=== PATIENT | female | born 1995 | race Caucasian/White ===

== ENCOUNTER 2017-06-14 16:05 | Emergency (ER) | payer MEDICAID, OTHER ==
--- NOTE | 2017-06-14 16:23 | PD ---
HPI Chief Complaint Contractions Date Seen: Jun 14, 2017 Travel History International Travel<30 Days: No Contact w/Intl Traveler<30Days: No History of Present Illness HPI Ms. Cunningham is a 22-year-old presenting at 40/1 weeks gestation with dysuria, contractions, and vaginal swelling. Patient states that over the last 24 hours she has noticed mild pain when she urinates. This morning when she uses the restroom after awakening, she "felt like she had to go very bad" with ABD pain. During urination she felt like there was some pain, but didn't see any blood. She also has noticed that her vulvar area has become swollen and pruritic. She states that the intensity was increased this morning, however has decreased since she took a nap this afternoon. She also endorses having contractions approximately every 10-15 minutes with pelvic pressure. Patient states that she is afraid to have a bowel movement as that she might pass the baby. She states that her otherwise has been uncomplicated and has no other current complaints. She denies any fevers, chills, shortness breath, chest pain, NVD, or calf tenderness. Weeks Gestation: 40 Para: 1 : 2 History Past Medical History Narrative Medical Patient reports no past medical history Obstetric History Obstetric History - at full-term, uncomplicated Past Surgical History Narrative Surgical No previous surgical history reported Family History Narrative Family History No family medical history reported Social History Narrative Social History Patient denies any tobacco, alcohol, or illicit drug use during . Allergies-Medications (Allergen,Severity, Reaction): Coded Allergies: No Known Allergies (Verified , 03/17/15) Home Meds No Active Prescriptions or Reported Meds Review of Systems Except as stated in HPI: all other systems reviewed are Neg (per history of present illness) Physical Exam Narrative GENERAL: Well-nourished, well-developed patient. SKIN: Warm and dry. HEAD: Normocephalic and atraumatic. EYES: No scleral icterus. No injection or drainage. ENT: No nasal drainage noted. Mucous membranes pink. Airway patent. NECK: Supple, trachea midline. No JVD. CARDIOVASCULAR: Regular rate and rhythm without murmurs, gallops, or rubs. RESPIRATORY: Breath sounds equal bilaterally. No accessory muscle use. ABDOMEN/GI: Abdomen soft, non-tender, bowel sounds present, no rebound, no guarding Gravid to 40 weeks size GENITOURINARY: Per nursing exam External Genitalia: intact and normal in appearance Cervix: Anterior Dilatation: 1cm Effacement: Long, thick Station: -3 Presentation: Membranes: Intact Uterine Contractions: 10-15min per patient FHT's: Category: 1 Baseline: 130s Reactive: Positive Variability: Moderate Decels: None EXTREMITIES: No cyanosis or edema. BACK: Nontender without obvious deformity. No CVA tenderness. NEUROLOGICAL: Awake and alert. Motor and sensory grossly within normal limits. Five out of 5 muscle strength in all muscle groups. Normal speech. Data Data Vital Signs Reviewed: Yes Group B Strep: Negative MDM Medical Record Reviewed: Yes Plan Ms. Cunningham is a 23-year-old presenting at 40/1 weeks gestation with dysuria, lower ABD pain, and contractions. 1. IUP at 40 weeks gestation -Continue routine antepartum care -Encourage oral hydration, vitamin -[facility] category 1, reassuring 2. Contractions -Patient without contractions on monitor -Cervical exam with anterior, closed, and thick cervix per staff 3. Dysuria -UA dipstick: Small leukocyte esterase, otherwise negative -UA with culture if indicated sent; plan to follow up cultures and treat as needed 4. Vulvar pain -Vulva on exam does not appear inflamed or edematous per staff -No signs of infection -Encouraged Benadryl for itching 5. Post-Dates Gestation -Patient scheduled for induction at 41 weeks -Scheduled for Monday, at 6 PM, patient aware and voiced understanding Patient to be discharged home as she is not in active labor and without acute infection. OB team to follow urine culture and treat if indicated ([phone]) . Patient given labor instructions and when to return to ED. Patient encouraged to follow up with OBGYN. SDW: Dr. Quesada Diagnosis Diagnosis: Primary Impression: 40 weeks gestation of Additional Impression: Pelvic pressure in Disposition: DISCHARGE HOME Condition: Stable Scripts No Active Prescriptions or Reported Meds Patient Instructions: General Instructions, Abdominal Pain in (ED), Early Labor Signs (ED), Having Your Baby: The Labor Process (GEN) Eben Camilo MD R2 Jun 14, 2017 16:22
[2017-06-14 16:54] VITALS: BP 91/69; PULSE 72
[2017-06-14 17:00] VITALS: RESP 17
[2017-06-14 17:49] LABS: AMORPHOUS SEDIMENT, URINE OCC; BACTERIA, URINE RARE /hpf; BILIRUBIN, URINE NEG (NEG); BLOOD, URINE NEG (NEG); GLUCOSE,URINE NEG (NEG); KETONE, URINE NEG (NEG); MUCUS URINE FEW /lpf (OCC); NITRITE,URINE NEG (NEG); PH, URINE 6.5 (5.0-8.5); SQUAMOUS EPITHELIAL CELL URINE 2 /hpf (0-5); URINE COLOR YELLOW (YELLW/STRAW); URINE LEUKOCYTE ESTERASE SMALL (NEG)
== END 2017-06-14 19:09 | disposition home or self-care (01) ==
LOC: HOBED 16:05
DX: R30.0 Dysuria (principal); Z3A.40 40 weeks gestation of pregnancy
CPT/HCPCS: 59025; 81001

== ENCOUNTER 2017-06-18 10:58 | Inpatient (IN) | payer MEDICAID, OTHER ==
[~2017-06-18] VITALS: Ht 149.9 cm; Wt 58.0 kg
[2017-06-18] MEDS ORDERED: LACTATED RINGER'S 1000 ML INJ 1,000 ML IV PRN (11:26)
[2017-06-18] MEDS: LACTATED RINGER'S 1000 ML INJ 1,000 ML IV SCH ×2 (11:26→20:14)
[2017-06-18] MEDS ORDERED: MINERAL OIL 10 ML VIAL TOPICAL PRN (11:30)
[2017-06-18] MEDS ORDERED: SODIUM CHLORID 0.9% 500 ML INJ 500 ML OTHER PRN (11:30)
[2017-06-18] MEDS ORDERED: CITRIC ACID-SODIUM CITRATE LIQ 30 ML UDC PO SCH (11:30)
[2017-06-18] MEDS ORDERED: LIDOCAINE HCL 1% 50 ML VIAL INFIL PRN (11:30)
[2017-06-18] MEDS ORDERED: LIDOCAINE HCL 1% 50 ML VIAL I-DERMAL PRN (11:30)
[2017-06-18] MEDS ORDERED: OXYTOCIN 30 UNITS-500ML PREMIX 500 ML IV ONE (11:30)
[2017-06-18] MEDS ORDERED: ONDANSETRON HCL 4 MG/2 ML VIAL IV PUSH PRN (11:30)
--- NOTE | 2017-06-18 11:35 | HHI.PR ---
ADULT PSYCHIATRIST Note Note ADMISSION H&P HPI HPI Chief Complaint ctx and ?LOF Date Seen: Jun 18, 2017 Time Seen: 11:27 Travel History International Travel<30 Days: No Contact w/Intl Traveler<30Days: No Known Affected Area: No History of Present Illness HPI 22y/o @ 40.5wks. She has PNC with [facility]. She presents today with c/o painful ctx since yesterday. She also woke up this morning wet and feels like her water may have broken. No VB. +FM. Weeks Gestation: 40 Para: 1 : 2 History (Limited) History Past Medical History Medical History: Denies Significant Hx Obstetric History Obstetric History 1. 2. current Past Surgical History Surgical History: No Previous Surgery Family History Family History: Negative Social History Alcohol Use: No Tobacco Use: No Substance Abuse: No Allergies-Medications Allergies-Medications (Allergen,Severity, Reaction): Coded Allergies: No Known Allergies (Verified , 03/17/15) Home Meds No Active Prescriptions or Reported Meds ROS Review of Systems Except as stated in HPI: all other systems reviewed are Neg Physical Exam Physical Exam Narrative General: well developed, well nourished, no acute distress HEENT: normocephalic atraumatic, extraocular movements intact, neck supple Abdomen: soft, gravid, nontender, nondistended Uterus: fundus term Extremities: full range of motion Skin: normal coloration, no rashes, no suspicious skin lesions noted Neurologic: cranial nerves 2-12 grossly intact, normal muscle tone, normal gait Psychiatric: normal mood and affect, appropriate FHTs: 120s, +accels, no decels, moderate variability, reactive [place]: ctx q1m Cvx: 3/90/-3 with forebag (amnisure+) Data Data Data Vital Signs Reviewed: Yes Orders Orders Vital Signs (Adult) .ON ADMISSION (06/18/17 11:26) ^ Labor Status (06/18/17 11:26) ^ Non Stress Test (06/18/17 11:26) Pamg-1 Test .ONCE (06/18/17 11:26) Admit To Inpatient (06/18/17 ) Vital Signs (Adult) .Per protocol (06/18/17 11:26) Heart (06/18/17 11:26) Amnioinfusion (06/18/17 11:26) Urinary Catheter Management .ONCE (06/18/17 11:26) Diet Liquid (06/18/17 Lunch) Lactated Ringer's 1000 Ml Inj (Lr 1000 M (06/18/17 11:26) Lactated Ringer's 1000 Ml Inj (Lr 1000 M (06/18/17 11:26) Sodium Chlorid 0.9% 500 Ml Inj (Ns 500 M (06/18/17 11:30) Sodium Chlor 0.9% 1000 Ml Inj (Ns 1000 M (06/18/17 11:46) Lidocaine 1% Inj (50 Ml) (Xylocaine 1% I (06/18/17 11:30) Citric Acid-Sodium Citrate Liq (Bicitra (06/18/17 11:30) Ondansetron Inj (Zofran Inj) (06/18/17 11:30) Fentanyl Inj (Fentanyl Inj) (06/18/17 11:30) Fentanyl Inj (Fentanyl Inj) (06/18/17 11:30) Complete Blood Count With Diff (06/18/17 11:26) Hold Clot (06/18/17 11:26) Abo/Rh Blood Type (06/18/17 11:26) Urinalysis - C+S If Indicated (06/18/17 11:26) Drug Screen, Random Urine (06/18/17 11:26) Resp Oxygen Non Rebreathe Mask (06/18/17 ) ^ Epidural / Intrathecal Infus (06/18/17 11:26) Oxytocin 30 Units-500ml Premix (Pitocin (06/18/17 11:30) Lidocaine 1% Inj (50 Ml) (Xylocaine 1% I (06/18/17 11:30) Light Mineral Oil (Muri-Lube Oil) (06/18/17 11:30) Inpatient Certification (06/18/17 ) Group B Strep: Negative MDM MDM Plan 22y/o @ 40.5wks with labor and ROM. -- admit to L&D -- CLD, epidural/anaya PRN -- FHTs cat 1 -- cvx /-3 with forebag -- GBS neg -- anticipate Diagnosis Diagnosis: Primary Impression: 40 weeks gestation of Additional Impressions: Postmaturity , 40-42 weeks gestation Uterine contractions during Rupture of membranes with clear amniotic fluid Scripts No Active Prescriptions or Reported Meds Lance Hernández MD Jun 18, 2017 11:35 Lance Hernández MD Jun 18, 2017 11:35
[2017-06-18] MEDS ORDERED: SODIUM CHLOR 0.9% 1000 ML INJ 1,000 ML OTHER PRN (11:46)
[2017-06-18] MEDS ORDERED: ePHEDrine/NS 25 MG/5 ML SYRINGE ONE (11:51)
[2017-06-18] MEDS ORDERED: fentaNYL 2MCG-BUPIV 0.125% INJ 100 ML ONE (11:51)
[2017-06-18 12:01] LABS: HEMATOCRIT 33.3 % (35.0-46.0); HEMOGLOBIN 10.9 GM/DL (11.6-15.3); MEAN CELL VOLUME 80.7 FL (80.0-100.0); MEAN CORPUSCULAR HEMOGLOBIN 26.4 PG (27.0-34.0); MEAN CORPUSCULAR HGB CONC 32.7 % (32.0-36.0); MEAN PLATELET VOLUME 8.9 FL (7.0-11.0); PLATELET COUNT 241 TH/MM3 (150-450); RED BLOOD COUNT 4.13 MIL/MM3 (4.00-5.30); RED CELL DISTRIBUTION WIDTH 15.9 % (11.6-17.2)
[2017-06-18] MEDS ORDERED: DO NOT ADMINISTER ANTICOAGULANTS PRN (13:00)
[2017-06-18] MEDS ORDERED: fentaNYL 2MCG-BUPIV 0.125% 100 ML EPIDURAL SCH (13:00)
[2017-06-18] MEDS ORDERED: ePHEDrine/NS 25 MG/5 ML SYRINGE IV PUSH PRN (13:00)
[2017-06-18] MEDS ORDERED: NO SYSTEM NARCOTICS PRN (13:00)
[2017-06-18 13:08] LABS: BANDS 1 % (0-6); LYMPHOCYTES 23 % (9-44); MONOCYTES 8 % (0-8); NEUTROPHIL # MANUAL DIFF 7.6 TH/MM3 (1.8-7.7); POLYS (SEG NEUTROPHILS) 68 % (16-70)
[2017-06-18 13:21] LABS: BACTERIA, URINE RARE /hpf; BILIRUBIN, URINE NEG (NEG); BLOOD, URINE NEG (NEG); GLUCOSE,URINE NEG (NEG); KETONE, URINE NEG (NEG); MUCUS URINE FEW /lpf (OCC); NITRITE,URINE NEG (NEG); SQUAMOUS EPITHELIAL CELL URINE <1 /hpf (0-5); URINE COLOR LIGHT-YELLOW (YELLW/STRAW); URINE LEUKOCYTE ESTERASE NEG (NEG)
[2017-06-18] MEDS ORDERED: OXYTOCIN 30 UNITS-500ML PREMIX 500 ML IV PRN (15:45)
--- NOTE | 2017-06-18 19:01 | PD.LABORPN ---
Subjective Subjective Pt comfortable with epidural in place. Objective Objective 5/100/ballottable with forebag (ruptured with amnihook and copious fluid returned) FHTs with moderate variability and occasional deep variables; no cord palpable and improved with repositioning Weeks Gestation: 40 Assessment/Plan Assessment and Plan 22y/o @ 40.5wks in labor. -- s/p epidural -- s/p ruptured of forebag -- continue pitocin augmentation -- anticipate Lance Hernández MD Jun 18, 2017 19:01
--- NOTE | 2017-06-19 00:14 | PD.LABORPN ---
Subjective Subjective CTSP by RN 2' to FHTs. O2 in place. Objective Objective Pt has had a decrease in baseline to 115s. Recurrent variables (mild). Cvx checked and /+1. IUPC placed and amnioinfusion initiated and variable decels improved. scalp stim --> FHTs up to 130s/140s. Moderate to marked variability present. Weeks Gestation: 40 Assessment/Plan Assessment and Plan Continue to monitor closely. Anticipate . Lance Hernández MD Jun 19, 2017 00:14
--- NOTE | 2017-06-19 02:25 | PD.OB.DELI ---
Weeks gestation: 40 Pt started active labor?: Yes Medical induction of labor?: No Artificial rupture of membrane: No Anesthesia: Epidural Episiotomy: None Vaginal Delivery: Normal, Spontaneous Presentation: Occiput anterior Nuchal Cord: None Delayed cord clamping (45 sec): Yes Infant: Male Delivery date: Jun 19, 2017 Delivery time: 02:17 One Minute : 8 Five Minute : 9 Placenta: Spontaneous delivery, Intact, 3 vessel cord Laceration: No lacerations Estimated blood loss: 200cc Lance Hernández MD Jun 19, 2017 02:25
[2017-06-19] MEDS ORDERED: ACETAMINOPHEN 325 MG TAB PO PRN (02:30)
[2017-06-19] MEDS ORDERED: ZOLPIDEM TARTRATE 5 MG TAB PO PRN (02:30)
[2017-06-19] MEDS ORDERED: SODIUM CHLORIDE 0.9% FLUSH 10 ML FLUSH IV FLUSH PRN (02:30)
[2017-06-19] MEDS ORDERED: WITCH HAZEL 50%/GLYCERIN 12.5% 40 PAD JAR TOPICAL PRN (02:30)
[2017-06-19] MEDS ORDERED: ONDANSETRON ODT 4 MG TAB PO PRN (02:30)
[2017-06-19] MEDS ORDERED: DOCUSATE SODIUM 50 MG/SENNA 8.6 MG TAB PO PRN (02:30)
[2017-06-19] MEDS ORDERED: ALUMINUM/MAGNESIUM/SIMETH 30 ML CUP PO PRN (02:30)
[2017-06-19] MEDS ORDERED: BENZOCAINE 20% TOPICAL SPRAY 60 ML CAN TOPICAL PRN (02:30)
[2017-06-19] MEDS ORDERED: OXYTOCIN 30 UNITS-500ML PREMIX 500 ML IV SCH (02:30)
[2017-06-19] MEDS ORDERED: SODIUM CHLORIDE 0.9% FLUSH 10 ML FLUSH IV FLUSH SCH (09:00)
[2017-06-19] MEDS: IBUPROFEN 800 MG TAB PO PRN ×2 (10:33→22:10)
[2017-06-19] MEDS ORDERED: MEASLES, MUMPS, RUBELLA VACCINE 0.5 ML VIAL SQ ONE (16:00)
[2017-06-19] MEDS ORDERED: DIPHTH/TETANUS/ACEL PERTUSSIS (BOOSTER) 0.5 ML VIAL/PFS IM ONE (16:00)
[2017-06-20 08:00] VITALS: BP 90/60; PULSE 50; RESP 18; TEMP 98.2
--- NOTE | 2017-06-20 08:11 | HHI.OB ---
Subjective Post Day: 1 Remarks day #1 AFVSS overnight. Decreased lochia. Denies dysuria. No breast tenderness. Appetite good. No nausea or vomiting. Positive flatus. Ambulating well. Denies calf pain or shortness of breath. Otherwise, she is doing well this morning and has no other complaints. Objective Objective Remarks GENERAL: Well-nourished, well-developed patient. CARDIOVASCULAR: Regular rate and rhythm without murmurs, gallops, or rubs. RESPIRATORY: Breath sounds equal bilaterally. No accessory muscle use. ABDOMEN/GI: Abdomen soft, non-tender. Fundus: Firm, non-tender at umbilicus. GENITOURINARY: Light to moderate bleeding. EXTREMITIES: No cyanosis or edema, non-tender, without signs of DVT. Medications and IVs Current Medications Medications (Trade) Dose Ordered Sig/Diana Route Start Time Stop Time Status Last Admin (NS Flush) 2 ml BID IV FLUSH 06/19/17 09:00 (NS Flush) 2 ml UNSCH PRN IV FLUSH 06/19/17 02:30 (Tylenol) 650 mg Q4H PRN PO 06/19/17 02:30 (Motrin) 800 mg Q8H PRN PO 06/19/17 02:30 06/19/17 22:10 (Americaine 20% Top Spr) 1 spray Q4H PRN TOPICAL 06/19/17 02:30 (Tucks Pads) 1 applic QID PRN TOPICAL 06/19/17 02:30 (Hansa-Colace) 2 tab Q12H PRN PO 06/19/17 02:30 06/19/17 22:09 (Ambien) 5 mg HS PRN PO 06/19/17 02:30 (Mag-Al Plus Susp Liq) 15 ml Q8H PRN PO 06/19/17 02:30 (Zofran Odt) 4 mg Q6H PRN PO 06/19/17 02:30 Assessment/Plan Assessment and Plan 30y/o female who is PPD#1 s/p . -Continue routine care. -Motrin PRN pain. -Encouraged OOB. Advised pelvic rest for 6 wks. -Re: ctrl, she would like to discuss with her primary care. -D/c likely tomorrow. jacqueline Levine,Kalpesh Valentine MD R1 Jun 20, 2017 08:11
[2017-06-20] MEDS ORDERED: PERI PO (11:45)
[2017-06-20] MEDS ORDERED: IBUP1TAB7 PO (11:45)
--- NOTE | 2017-06-20 11:46 | HHI.DCPOC ---
Discharge Care Plan Diagnosis: (1) (spontaneous vaginal delivery) Report Symptoms to Your Doctor -Temperature above 100.5 degrees -Redness, of incision or excessive or foul smelling drainage -Unusual pain or calf pain -Increased vaginal bleeding -Painful or difficulty urinating -Feelings of extreme sadness or anxiety after 2 weeks Goals to Promote Your Health * To prevent worsening of your condition and complications * To maintain your health at the optimal level Directions to Meet Your Goals Take your medications as prescribed Follow your dietary instruction Follow activity as directed Ensure plenty of rest for recovery Drink fluids for hydration Keep your appointments as scheduled Take your immunizations and boosters as scheduled If your symptoms worsen call your PCP, if no PCP go to Urgent Care Center or Emergency Room Smoking is Dangerous to Your Health. Avoid second hand smoke Call the 24-hour crisis hotline for domestic abuse at Eben Camilo MD R2 Jun 20, 2017 11:46
== END 2017-06-20 13:48 | disposition home or self-care (01) | DRG 775 ==
LOC: HOBED 10:58 → H2EB 11:45 → H1EA 06-19 03:47
PROVIDERS: ADMIT Obstetrics & Gynecology; ATTEND Obstetrics & Gynecology
PROC: 10907ZC Drainage of Amniotic Fluid, Therapeutic from Products of Conception, Via Natural or Artificial Opening (ICD-10-PCS; 2017-06-18)
PROC: 3E0R3BZ Introduction of Anesthetic Agent into Spinal Canal, Percutaneous Approach (ICD-10-PCS; 2017-06-18)
PROC: 00HU33Z Insertion of Infusion Device into Spinal Canal, Percutaneous Approach (ICD-10-PCS; 2017-06-18)
PROC: 10E0XZZ Delivery of Products of Conception, External Approach (ICD-10-PCS; principal; 2017-06-19)
PROC: 10H07YZ Insertion of Other Device into Products of Conception, Via Natural or Artificial Opening (ICD-10-PCS; 2017-06-19)
PROC: 3E0E7GC Introduction of Other Therapeutic Substance into Products of Conception, Via Natural or Artificial Opening (ICD-10-PCS; 2017-06-19)
DX: O42.02 Full-term premature rupture of membranes, onset of labor within 24 hours of rupture (principal); O48.0 Post-term pregnancy; Z37.0 Single live birth; Z3A.40 40 weeks gestation of pregnancy
CPT/HCPCS: 80307; 81001; 84112; 85007; 85027; 90715; 99285; J2405; J2590; J3010; J7120